=== PATIENT | male | born 1955 | race Caucasian/White ===

== ENCOUNTER 2025-07-03 13:48 | Emergency (ER) | payer BC ==
[~2025-07-03] VITALS: Ht 177.8 cm; Wt 92.5 kg
[~2025-07-03 13:48] MED LIST: HYDR25TA4 PO; LOSA100T3 PO
[2025-07-03] MEDS ORDERED: OLME1TAB92 PO (13:56)
[2025-07-03 14:17] LABS: PLATELET COUNT (AUTO) 264 K/uL (152-348); RED BLOOD CELL COUNT(AUTO) 5.34 MIL/uL (4.06-5.63); RED CELL DISTRIBUTION WIDTH 14.7 % (12.1-16.2); WHITE BLOOD COUNT (AUTO) 6.3 K/uL (3.6-10.2)
[2025-07-03 14:23] LABS: CREATININE 1.1 mg/dL (0.6-1.3); SODIUM SERUM 138.0 mmol/L (136-145); UREA NITROGEN, BLOOD 17.0 mg/dL (7-18)
[2025-07-03] MEDS ORDERED: METOPROLOL TARTRATE 5 MG/5 ML VIAL IVP ONE (14:46)
[2025-07-03] MEDS: METOPROLOL TARTRATE 5 MG/5 ML VIAL IVP ONE (14:55)
[2025-07-03 15:27] VITALS: BP 153/98
[2025-07-03 15:40] VITALS: BP 153/98; O2SAT 99
== END 2025-07-03 15:40 | disposition home or self-care (01) ==
LOC: ER 13:48
DX: I11.9 Hypertensive heart disease without heart failure (principal); R51.9 Headache, unspecified; Z88.7 Allergy status to serum and vaccine; R07.9 Chest pain, unspecified; R06.02 Shortness of breath; Z79.899 Other long term (current) drug therapy
CPT/HCPCS: 36415; 71045; 84484; 85025; A4606; A4663; J3490